=== PATIENT | male | born 1990 | race Caucasian/White ===

== ENCOUNTER 2017-12-20 05:12 | Emergency (ER) | payer BC ==
[~2017-12-20] VITALS: Ht 165.1 cm; Wt 70.0 kg
[2017-12-20] MEDS ORDERED: ONDANSETRON 4MG ODT PO ONE (06:45)
[2017-12-20 07:27] VITALS: BP 115/65
== END 2017-12-20 07:58 | disposition home or self-care (01) ==
LOC: ER 05:32
DX: R11.2 Nausea with vomiting, unspecified (principal)
CPT/HCPCS: 99283; Q0162; Z7610